=== PATIENT | female | born 1975 | race Two or more races ===

== ENCOUNTER 2020-06-18 06:31 | Outpatient (CLI) | payer OTHER | END 2020-06-18 23:59 | disposition home or self-care (01) | LOC: LAB 06:31 | PROVIDERS: ATTEND Orthopaedic Surgery | DX: Z01.812 Encounter for preprocedural laboratory examination (principal); Z20.822 Contact with and (suspected) exposure to COVID-19 ==

== ENCOUNTER 2020-06-20 08:30 | Day surgery (SDC) | payer OTHER ==
[~2020-06-20 08:30] MED LIST: POLYMYXIN B SULFATE 500,000 UNITS, BACITRACIN 50,000 UNITS, NORMAL SALINE 20 ML MC ONE
[2020-06-20] MEDS ORDERED: CEFAZOLIN 1 G VIAL IM ONE (08:31)
[2020-06-20] MEDS ORDERED: DEXAMETHASONE SOD PHOSPHATE 4 MG INJ IV ONE (08:31)
[2020-06-20] MEDS ORDERED: ONDANSETRON 4 MG/2 ML VIAL IV ONE (08:31)
[2020-06-20] MEDS ORDERED: SEVOFLURANE 250 ML BOTTLE IH ONE (08:31)
[2020-06-20] MEDS ORDERED: PROPOFOL 200 MG/20 ML BOTTLE IV ONE (08:31)
[2020-06-20] MEDS ORDERED: METOCLOPRAMIDE HCL 10 MG/2 ML VIAL IV ONE (08:31)
[2020-06-20 09:17] LABS: *URINE HCG, QUAL NEGATIVE (NEGATIVE)
[2020-06-20] MEDS ORDERED: MIDAZOLAM HCL 2 MG/2 ML VIAL ONE (10:15)
[2020-06-20] MEDS ORDERED: FENTANYL CITRATE 100 MCG/2 ML AMPUL ONE (10:15)
[2020-06-20] MEDS ORDERED: BUPIVACAINE PF 0.5% 30 ML VIAL ONE (10:46)
[2020-06-20] MEDS ORDERED: TRAMADOL HCL 50 MG TABLET ONE (13:29)
== END 2020-06-20 13:25 | disposition home or self-care (01) ==
LOC: DS 08:30
PROVIDERS: ATTEND Orthopaedic Surgery
DX: G56.01 Carpal tunnel syndrome, right upper limb (principal); F41.9 Anxiety disorder, unspecified; Z79.899 Other long term (current) drug therapy; Z98.890 Other specified postprocedural states
CPT/HCPCS: 64721; 84703; J0690; J1100; J2250; J2405; J2765; J3010; J3490 ×3; J7120; A4649; A4663